=== PATIENT | female | born 1995 | race Caucasian/White ===

== ENCOUNTER 2024-02-25 18:33 | Inpatient (IN) | payer OTHER ==
[2024-02-25] VITALS (14 sets, daily range): BP systolic 123–160; BP diastolic 67–101; PULSE 85–99; TEMP 98.2
[~2024-02-25] VITALS: Ht 167.6 cm; Wt 75.5 kg
--- NOTE | 2024-02-25 18:45 | NUR ---
G1L0. 36.6. Wheeled to LDR 6 with spouse. Clean gown on. EFM and TOCO explained and applied. Pt states the office has been watching her closely for pre-e. Pt states her blood pressure at home was 161/104 one hour ago. Pt also reports a headache that did not go away with tylenol, blurred vision and seeing spots. Pt also reports swelling has gotten worse. +1 pitting edema noted on lower extremities bilt. Plan of care explained to pt and spouse who verbalize their understanding. 193: called and updated on pt's status. See physican notification.
[2024-02-25] MEDS ORDERED: BUSPAR DIVIDOSE15 MG PO (18:56)
[2024-02-25] MEDS ORDERED: PRENATAL MVI PO (18:57)
[2024-02-25] MEDS ORDERED: CYMBALTA 60MG60 MG PO (18:57)
[2024-02-25] MEDS ORDERED: UNISOM25 MG PO (18:57)
[2024-02-25] MEDS ORDERED: VITAMIN B-610 MG PO (18:58)
[2024-02-25] MEDS ORDERED: LR 1,000 ML IV PRN (19:45)
[2024-02-25] MEDS ORDERED: Acetaminophen 500 MG TAB PO ONE (19:45)
[2024-02-25 20:07] LABS: BASO # 0.1 K/mm3 (0.0-0.2); BASO % 0.8 % (0.0-2.0); EOS # 0.1 K/mm3 (0.0-0.7); EOS % 1.2 % (0.0-4.0); GRAN # 5.9 K/mm3 (1.4-6.5); GRAN % 66.7 % (42.2-75.2); HEMATOCRIT 38.7 % (37.0-47.0); HEMOGLOBIN 13.3 g/dl (12.5-16.0); LYMPH # 1.8 K/mm3 (1.2-3.4); LYMPH % 20.6 % (20.0-51.0); MEAN CELL VOLUME 92 fl (80.0-100.0); MEAN CORPUSCULAR HEMOGLOBIN 32 pg (27-31); MEAN CORPUSCULAR HGB CONC 34 g/dl (33.0-37.0); MEAN PLATELET VOLUME 12.8 fl (7.4-10.4); MONO # 0.9 K/mm3 (0.1-0.6); PLATELET COUNT 151 K/mm3 (130-400); RED BLOOD COUNT 4.22 M/mm3 (4.10-5.30); REDCELL DISTRIBUTION WIDTH-CV 13.7 % (11.5-14.5)
[2024-02-25 20:21] LABS: CALCIUM 9.1 mg/dL (8.4-10.2); CREATININE, serum 0.8 mg/dL (0.57-1.11); POTASSIUM 4.8 mEq/L (3.5-4.5); TOTAL PROTEIN 5.5 g/dl (6.2-8.1)
[2024-02-25 20:34] LABS: COLLECTION METHOD CLEAN CATCH
--- NOTE | 2024-02-25 20:40 | NUR ---
Pt reports still having a headache and seeing spots. Reports her blurred vision is better at this time. Pt states "I just feel miserable." 2044: called unit and update given on pt's status. Provider at home reviewing FHR strip, pt's blood pressures and lab work. See physcian notification. 2100: spoke with and new orders received. See physcian notification. Pt updated on new plan of care. Questions answered. 2124: IV started to left forearm. 2129: Pt ambulatory to 213 and oriented to room. Call light josseline lin.
[2024-02-25 20:45] LABS: URINE APPEARANCE CLEAR (CLEAR/HAZY); URINE BLOOD NEGATIVE (NEGATIVE); URINE COLOR YELLOW (YELLOW); URINE GLUCOSE NEGATIVE (NEGATIVE); URINE KETONE TRACE (NEGATIVE); URINE NITRATE NEGATIVE (NEGATIVE); URINE PROTEIN(semi-quant) 3+ (NEGATIVE)
[2024-02-25 20:47] LABS: BILIRUBIN,TOTAL 0.2 mg/dL (0.2-1.2)
[2024-02-25 21:11] LABS: URINE RBC 0-2 /hpf (0-2)
[2024-02-25] MEDS ORDERED: LR 1,000 ML IV SCH (22:00)
[2024-02-26] VITALS (23 sets, daily range): BP systolic 116–163; BP diastolic 43–105; PULSE 74–96; TEMP 97.8–98.6
[2024-02-26 08:19] LABS: BASO # 0.1 K/mm3 (0.0-0.2); BASO % 0.9 % (0.0-2.0); EOS # 0.1 K/mm3 (0.0-0.7); EOS % 1.4 % (0.0-4.0); GRAN # 4.4 K/mm3 (1.4-6.5); GRAN % 62.5 % (42.2-75.2); HEMOGLOBIN 12.5 g/dl (12.5-16.0); LYMPH # 1.7 K/mm3 (1.2-3.4); LYMPH % 23.6 % (20.0-51.0); MEAN CELL VOLUME 90 fl (80.0-100.0); MEAN CORPUSCULAR HEMOGLOBIN 32 pg (27-31); MEAN CORPUSCULAR HGB CONC 35 g/dl (33.0-37.0); MEAN PLATELET VOLUME 12.9 fl (7.4-10.4); MONO # 0.8 K/mm3 (0.1-0.6); MONO % 10.7 % (1.7-9.3); PLATELET COUNT 141 K/mm3 (130-400); RED BLOOD COUNT 3.93 M/mm3 (4.10-5.30); REDCELL DISTRIBUTION WIDTH-CV 13.8 % (11.5-14.5)
[2024-02-26 08:24] LABS: HEMATOCRIT 35.5 % (37.0-47.0)
[2024-02-26 08:33] LABS: ALBUMIN 1.8 g/dL (3.5-5.0); BILIRUBIN,TOTAL 0.3 mg/dL (0.2-1.2); CALCIUM 8.2 mg/dL (8.4-10.2); CREATININE, serum 0.77 mg/dL (0.57-1.11); POTASSIUM 4.5 mEq/L (3.5-4.5); TOTAL PROTEIN 4.5 g/dl (6.2-8.1)
[2024-02-26] MEDS ORDERED: LR 1,000 ML IV SCH ×2 (08:45→10:15)
[2024-02-26] MEDS ORDERED: Ondansetron 4 MG/2 ML VIAL IV SCH (10:15)
[2024-02-26] MEDS ORDERED: ceFAZolin 2 G VIAL IV ONE (10:46)
[2024-02-26] MEDS ORDERED: fentaNYL 50 MCG/ML 2 ML VIAL IV ONE (10:46)
[2024-02-26] MEDS ORDERED: Ketorolac 30 MG/ML VIAL IV ONE (10:46)
[2024-02-26] MEDS ORDERED: oxyCODONE 5 MG TAB PO PRN (13:00)
[2024-02-26] MEDS ORDERED: LR 1,000 ML IV PRN (13:00)
[2024-02-26] MEDS ORDERED: Morphine 4 MG/ML VIAL IV PRN ×2 (13:00→21:00)
[2024-02-26] MEDS ORDERED: Acetaminophen 500 MG TAB PO SCH (13:00)
[2024-02-26] MEDS ORDERED: Ondansetron 4 MG/2 ML VIAL IV PRN (13:00)
[2024-02-26] MEDS ORDERED: Naloxone 0.4 MG/ML VIAL IV PRN (13:00)
[2024-02-26] MEDS ORDERED: Measles/Mumps/Rubella Virus Vaccine Live w Diluent 0.5 ML VIAL SQ SCH (13:00)
[2024-02-26] MEDS ORDERED: Magnes Hydrox (MOM) 80 MG/ML 30 ML CUP PO PRN (13:00)
[2024-02-26] MEDS ORDERED: Loratadine 10 MG TAB PO PRN (13:00)
[2024-02-26] MEDS ORDERED: NIFEdipine XL 60 MG TAB PO SCH (15:00)
[2024-02-26] MEDS ORDERED: Sennosides/Docusate 8.6-50 MG TAB PO SCH (17:00)
--- NOTE | 2024-02-26 17:38 | NUR ---
THIS RN ATTEMPTS TO AMBULATE WITH THE PT TO THE BATHROOM TO PERFORM PERICARE.UPON STANDING, PT BEGINS TO SWAY AND FEEL LIGHTHEADED.THIS RN IMMEDIATELY PLACES PT BACK IN BED. VITAL SIGNS STABLE.RN ADVISES PT THAT WILL REPEAT AMBULATING IN ONE HOUR IF PT IS FEELING BETTER.
[2024-02-26] MEDS ORDERED: Ibuprofen 600 MG TAB PO SCH (18:57)
[2024-02-26] MEDS ORDERED: traZODone 50 MG TAB PO PRN (21:00)
[2024-02-27 06:16] LABS: BASO # 0.1 K/mm3 (0.0-0.2); BASO % 0.3 % (0.0-2.0); GRAN # 19.3 K/mm3 (1.4-6.5); GRAN % 80.9 % (42.2-75.2); LYMPH # 2.2 K/mm3 (1.2-3.4); LYMPH % 9.4 % (20.0-51.0); MEAN CELL VOLUME 92 fl (80.0-100.0); MEAN CORPUSCULAR HGB CONC 35 g/dl (33.0-37.0); MEAN PLATELET VOLUME 13.1 fl (7.4-10.4); MONO # 2.1 K/mm3 (0.1-0.6); MONO % 8.7 % (1.7-9.3); PLATELET COUNT 180 K/mm3 (130-400); RED BLOOD COUNT 2.82 M/mm3 (4.10-5.30); REDCELL DISTRIBUTION WIDTH-CV 13.7 % (11.5-14.5)
[2024-02-27 06:27] LABS: MEAN CORPUSCULAR HEMOGLOBIN 32 pg (27-31)
[2024-02-27 06:28] LABS: ALBUMIN 1.7 g/dL (3.5-5.0); BILIRUBIN,TOTAL 0.2 mg/dL (0.2-1.2); CALCIUM 7.9 mg/dL (8.4-10.2); CREATININE, serum 1.23 mg/dL (0.57-1.11); TOTAL PROTEIN 4.2 g/dl (6.2-8.1)
[2024-02-27 06:45] LABS: POTASSIUM 5.9 mEq/L (3.5-4.5)
[2024-02-27 06:48] VITALS: BP 143/81; PULSE 104
[2024-02-27 06:53] LABS: BAND 2 % (0-10); LYMPHOCYTE 9 % (20.0-51.0)
[2024-02-27 06:54] VITALS: BP 129/74; PULSE 119
[2024-02-27 06:54] LABS: PLATELET ESTIMATE NORMAL (NORMAL)
[2024-02-27 06:55] LABS: NEUTROPHILS 80 % (42.0-75.2)
[2024-02-27 06:59] VITALS: BP 124/75; PULSE 130
[2024-02-27 07:02] VITALS: BP 122/70; PULSE 129
[2024-02-27 08:41] LABS: COLLECTION METHOD CLEAN CATCH
[2024-02-27 09:07] LABS: URINE APPEARANCE TURBID (CLEAR/HAZY); URINE BLOOD NEGATIVE (NEGATIVE); URINE COLOR Dark Yellow (YELLOW); URINE GLUCOSE NEGATIVE (NEGATIVE); URINE KETONE TRACE (NEGATIVE); URINE NITRATE NEGATIVE (NEGATIVE); URINE PROTEIN(semi-quant) 1+ (NEGATIVE)
[2024-02-27] MEDS ORDERED: NS 1,000 ML IV SCH (09:15)
[2024-02-27 09:19] LABS: URINE WBC 0-2 /hpf (0-2)
[2024-02-27 09:20] LABS: URINE BACTERIA MODERATE /hpf (NONE SEEN)
[2024-02-27] MEDS ORDERED: NS 1,000 ML IV ONE (09:30)
[2024-02-27 11:40] VITALS: BP 122/76; PULSE 94; TEMP 98.2
[2024-02-27 16:43] VITALS: BP 122/78; PULSE 97; TEMP 98
[2024-02-27] MEDS ORDERED: Ferrous Sulfate 325 MG TAB PO SCH (17:00)
[2024-02-27 19:57] LABS: CALCIUM 7.6 mg/dL (8.4-10.2); CREATININE, serum 1.13 mg/dL (0.57-1.11); POTASSIUM 4.4 mEq/L (3.5-4.5)
--- NOTE | 2024-02-28 06:30 | NUR ---
Back charting done on intake and output for 02/27/24 1900 through 02/28/24 0600 by this RN due to previous SHANICE Coyne not having access to [facility].
[2024-02-28 06:54] LABS: MEAN CELL VOLUME 93 fl (80.0-100.0); MEAN CORPUSCULAR HGB CONC 34 g/dl (33.0-37.0); MEAN PLATELET VOLUME 11.8 fl (7.4-10.4); PLATELET COUNT 189 K/mm3 (130-400); RED BLOOD COUNT 2.23 M/mm3 (4.10-5.30); REDCELL DISTRIBUTION WIDTH-CV 14.5 % (11.5-14.5)
[2024-02-28 06:57] LABS: HEMATOCRIT 20.7 % (37.0-47.0); HEMOGLOBIN 7.1 g/dl (12.5-16.0); MEAN CORPUSCULAR HEMOGLOBIN 32 pg (27-31)
[2024-02-28 07:07] LABS: ALBUMIN 1.8 g/dL (3.5-5.0); BILIRUBIN,TOTAL 0.2 mg/dL (0.2-1.2); CALCIUM 7.8 mg/dL (8.4-10.2); CREATININE, serum 0.78 mg/dL (0.57-1.11); POTASSIUM 4.7 mEq/L (3.5-4.5); TOTAL PROTEIN 4.6 g/dl (6.2-8.1)
[2024-02-28 07:21] LABS: BAND 2 % (0-10); EOSINOPHIL 1 % (0-4); LYMPHOCYTE 19 % (20.0-51.0); NEUTROPHILS 71 % (42.0-75.2); PLATELET ESTIMATE NORMAL (NORMAL)
[2024-02-28 08:00] VITALS: BP 145/68; PULSE 116; TEMP 98.5
[2024-02-28 17:20] VITALS: BP 142/79; PULSE 108
[2024-02-29 04:45] VITALS: BP 125/78; PULSE 80; TEMP 98.3
[2024-02-29 07:26] LABS: MEAN CELL VOLUME 95 fl (80.0-100.0); MEAN CORPUSCULAR HGB CONC 34 g/dl (33.0-37.0); MEAN PLATELET VOLUME 10.9 fl (7.4-10.4); PLATELET COUNT 200 K/mm3 (130-400); RED BLOOD COUNT 2.21 M/mm3 (4.10-5.30); REDCELL DISTRIBUTION WIDTH-CV 14.5 % (11.5-14.5)
[2024-02-29 07:30] LABS: HEMOGLOBIN 7.2 g/dl (12.5-16.0); MEAN CORPUSCULAR HEMOGLOBIN 33 pg (27-31)
[2024-02-29 07:49] LABS: ALBUMIN 1.8 g/dL (3.5-5.0); BILIRUBIN,TOTAL 0.3 mg/dL (0.2-1.2); CALCIUM 8.2 mg/dL (8.4-10.2); CREATININE, serum 0.73 mg/dL (0.57-1.11); MAGNESIUM 1.6 mg/dL (1.6-2.6); POTASSIUM 4.4 mEq/L (3.5-4.5)
[2024-02-29 08:50] VITALS: BP 147/86; PULSE 80; TEMP 98.2
[2024-02-29] MEDS ORDERED: FERROUS SU325 MG/TAB PO (09:34)
[2024-02-29] MEDS ORDERED: ROXICODONE 55 MG/TAB PO (09:34)
== END 2024-02-29 14:00 | disposition home or self-care (01) | DRG 786 ==
LOC: LDRO 18:33 → OB 02-26 08:00
PROVIDERS: Internal Medicine; Student in an Organized Health Care Education/Training Program; ADMIT Obstetrics & Gynecology
PROC: 10D00Z1 Extraction of Products of Conception, Low, Open Approach (ICD-10-PCS; principal; 2024-02-26)
DX: O14.14 Severe pre-eclampsia complicating childbirth (principal); N17.0 Acute kidney failure with tubular necrosis; D62 Acute posthemorrhagic anemia; Z3A.36 36 weeks gestation of pregnancy; Z37.0 Single live birth; O99.824 Streptococcus B carrier state complicating childbirth; O99.344 Other mental disorders complicating childbirth; O77.0 Labor and delivery complicated by meconium in amniotic fluid; O69.2XX0 Labor and delivery complicated by other cord entanglement, with compression, not applicable or unspecified; O90.89 Other complications of the puerperium, not elsewhere classified; F41.8 Other specified anxiety disorders; E87.5 Hyperkalemia; O72.3 Postpartum coagulation defects; D72.829 Elevated white blood cell count, unspecified; O90.81 Anemia of the puerperium; Z86.16 Personal history of COVID-19; Z88.5 Allergy status to narcotic agent
CPT/HCPCS: J0690; J1885; J2270; J2405; J3010; J7030; J7120